=== PATIENT | female | born 1995 | race Caucasian/White ===

== ENCOUNTER 2017-08-14 15:44 | Emergency (ER) | payer OTHER ==
[2017-08-14 17:28] VITALS: BP 104/52
[2017-08-14] MEDS ORDERED: Ketorolac INJ* 60 MG/2 ML VIAL IM ONE (17:46)
[2017-08-14] MEDS ORDERED: Acetaminophen TAB* 325 MG PO ONE (18:30)
--- NOTE | 2017-08-14 18:39 | UC ---
Barron Phan Alfonso, scribed for True Inman MD on 08/14/17 at 1743 . UC General HPI - HPI Summary HPI Summary: This patient is a 21 year old F presenting to [facility] with a chief complaint of constant right jaw pain and popping since yesterday. The patient rates the aching pain 8/10 in severity. Symptoms aggravated by yawning and eating. Symptoms alleviated by nothing. Patient denies difficulty swallowing, ear pain and sore throat. - History of Current Complaint Chief Complaint: UCGeneralIllness Stated Complaint: JAW PAIN Time Seen by Provider: 08/14/17 17:39 Hx Obtained From: Patient Onset/Duration: Sudden Onset, Lasting Days - yesterday, Still Present Timing: Constant Current Severity: Moderate Pain Intensity: 8 - /10 Aggravating: yawning and eating Alleviating: nothing. Associated Signs & Symptoms: Positive: Other - Patient denies difficulty swallowing, ear pain and sore throat. - Allergy/Home Medications Allergies/Adverse Reactions: Allergies Allergy/AdvReac Type Severity Reaction Status Date / Time No Known Allergies Allergy Verified 08/14/17 17:17 Home Medications: Home Medications Acetaminophen [Acetaminophen Extra Stren] 1,000 mg PO ONCE 08/14/17 [History Confirmed 08/14/17] Multivit-Min W/Fe-FA [ and Iron] 1 tab PO DAILY 08/14/17 [ History Confirmed 08/14/17] PMH/Surg Hx/FS Hx/Imm Hx Previously Healthy: Yes - Surgical History Surgical History: None - Family History Known Family History: Positive: Other - Throid disease. Muscular distrophy. - Social History Alcohol Use: None Substance Use Type: None Smoking Status (MU): Never Smoked Tobacco Review of Systems Constitutional: Other - Negative fever ENT: Other - right jaw pain and popping Negative sore throat, difficulty swallowing, ear pain All Other Systems Reviewed And Are Negative: Yes Physical Exam Triage Information Reviewed: Yes Vital Signs: Initial Vital Signs Temp 98.5 F 08/14/17 17:19 Pulse 75 08/14/17 17:19 Resp 18 08/14/17 17:19 BP 104/52 08/14/17 17:19 Pulse Ox 100 08/14/17 17:19 Vital Signs Reviewed: Yes - Additional Comments VITAL SIGNS: Reviewed. GENERAL: Patient is a well-developed and nourished female who is lying comfortable in the stretcher. Patient is not in any acute respiratory distress. HEAD AND FACE: Normocephalic EYES: PERRLA, EOMI x 2. EARS: Hearing grossly intact. MOUTH: Oropharynx within normal limits. TMJ tenderness. NECK: Supple, trachea is midline, no adenopathy, no JVD, no carotid bruit. CHEST: Symmetric, no tenderness at palpation LUNGS: Clear to auscultation bilaterally. No wheezing or crackles. CVS: Regular rate and rhythm, S1 and S2 present, no murmurs or gallops appreciated. ABDOMEN: Soft, non-tender. Bowel sounds are normal. No abdominal abnormal pulsations. EXTREMITIES: Full ROM in all major joints, no edema, no cyanosis or clubbing. NEURO: Alert and oriented x 3. No acute neurological deficits. Speech is normal and follows commands. SKIN: Dry and warm Course/Dx - Course Course Of Treatment: This patient is a 21 year old F presenting to [facility] with a chief complaint of constant right jaw pain and popping since yesterday. The patient rates the aching pain 8/10 in severity. Symptoms aggravated by yawning and eating. Symptoms alleviated by nothing. Patient denies difficulty swallowing , ear pain and sore throat. In the [facility] course the patient was given Tylenol. Patient will be discharged with follow up from PCP. The patient is agreeable with this plan. The patient is hemodynamically stable, alert and oriented x3. - Differential Dx - Multi-Symptom Differential Diagnoses: Other - Pharyngitis, OM, OE Provider Diagnoses: TMJ tenderness. Discharge - Discharge Plan Condition: Stable Disposition: HOME Patient Education Materials: Temporomandibular Disorder (ED) Referrals: Adrien SALAMANCA,[address] [Primary Care Provider] - 3 Days Additional Instructions: RETURN TO THE EMERGENCY DEPARTMENT OR CONVIENT CARE FOR CHANGING OR WORSENING SYMPTOMS. The documentation as recorded by the Barron marie Alfonso accurately reflects the service I personally performed and the decisions made by , True Inman MD.
== END 2017-08-14 18:42 | disposition home or self-care (01) ==
LOC: UCEAST 15:44
DX: M26.69 Other specified disorders of temporomandibular joint (principal)
CPT/HCPCS: 99212; A9270-GY; G0463; J1885

== ENCOUNTER 2018-02-23 03:07 | Inpatient (IN) | payer OTHER ==
[2018-02-23 04:56] LABS: Hematocrit 36 % (35-47); Hemoglobin 12.2 g/dl (12.0-16.0); Mean Corpuscular HGB Conc 33 g/dl (31-36); Mean Corpuscular Hemoglobin 28 pg (27-31); Mean Corpuscular Volume 85 fL (80-97); Mean Platelet Volume 8.3 um3 (7.4-10.4); Platelet Count 277 10^3/ul (150-450); Red Blood Count 4.27 10^6/ul (4.00-5.40); Red Cell Distribution Width 14 % (10.5-15); White Blood Count 17.5 10^3/ul (3.5-10.8)
[2018-02-23 05:00] LABS: Urine Appearance Clear; Urine Blood Negative (Negative); Urine Color Straw; Urine Ketones Negative (Negative); Urine Protein Negative (Negative); Urine Specific Gravity 1.004 (1.010-1.030); Urine Urobilinogen Negative (Negative)
--- NOTE | 2018-02-23 06:00 | HP ---
General Information - General Information Maternal Age: 22 Grav: 1 Para: 0 SAB: 0 IEA: 0 Estimated Due Date: 02/19/18 Determined By: Early Ultrasound - 11 week Maternal Blood Type and Rh: A Positive - Results this Serology/RPR Result: Non-Reactive Rubella Result: Immune HBsAg Result: Negative HIV Result: Negative GBS Culture Result: Negative Past Medical History Delivery History: See Records Delivery History Comment: primip Pertinent Past Medical History: See Records Past Medical History Comment: Hx asthma. Uses rescue inhaler PRN. Hx depression/anxiety. No current medications Pertinent Past Surgical History: None Pertinent Family History: See Records Family History Comment: Father: Muscular dystrophy Mother: Cervical Cancer, Celiac disease Brother: Lyme disease, Celiac disease Sister: Autism MGM: Celiac disease - Antepartal Records Antepartal Records: Reviewed, Uncomplicated Review of Systems Constitutional: Uncomfortable - with UCs CV Complaint: No Respiratory: Shortness of Breath: No Gastrointestinal: No Nausea/Vomiting, Normal Bowel Movement Genitourinary: No Dysuria, No Bleeding, No Leaking Fluid Musculoskeletal: Contractions Neurological: No Headache, No Visual Changes Movement: Normal Exam Allergies/Adverse Reactions: Allergies No Known Allergies Allergy (Verified 08/14/17 17:17) BP: 143/93, 143/88, 142/92, 142/78 HR: 84 RR: 18 T: 97.7 Lab Values - Entire Visit: Laboratory Tests 02/23/18 02/23/18 02/23/18 04:13 04:13 04:15 WBC 17.5 H RBC 4.27 Hgb 12.2 Hct 36 MCV 85 MCH 28 MCHC 33 RDW 14 Plt Count 277 MPV 8.3 Urine Color Straw Urine Appearance Clear Urine pH 6.0 Ur Specific [place] 1.004 L Urine Protein Negative Urine Ketones Negative Urine Blood Negative Urine Nitrate Negative Urine Bilirubin Negative Urine Urobilinogen Negative Ur Leukocyte Esterase Trace A Urine WBC (Auto) Trace(0-5/hpf) Urine RBC (Auto) Trace(0-2/hpf) Ur Squamous Epith Cells Present A Urine Bacteria Absent Urine Glucose Negative Blood Type A Positive - Measurements Height: 5 ft 5 in Weight: 207 lb Weight in lbs: [id number] Body Mass Index (BMI): 34.4 Pre- Weight: 145 lb Weight Gained This : 62 lbs and 0 ozs - Exam Abdomen: No Upper Quadrant Pain Breast: Breast Exam Deferred CVA: No CVA Tenderness Extremities: No Edema Heart: Normal Rhythm/Heart Sounds HEENT: No Significant Findings Lungs: Clear Bilaterally Rectal: Rectal Exam Deferred Reflexes: DTR 2+ Thyroid: No Thyromegaly - Abdominal Exam Abdomen Exam: Non-Tender, Fundal Height Consistent with Dates - Ultrasound/Biophysical Profile Ultrasound Status: Not Done Targeted Exam Findings See L&D Outpatient Visit Provider Note for Findings: N/A Estimated Weight: 8lbs Cervical Exam: 7cm Effacement: 100% Presenting Part: Vertex Membrane Status: Bulging Sterile Speculum Exam: not done EFM Findings - External Monitor Findings Baseline Heart Rate: 130 External Monitor Findings: Accelerations Present, No Pattern of Variable or Late Decelerations, Variability Moderate, Baseline Stable External Monitor Findings Comment: No evidence of metabolic acidemia Contractions: Moderate, Strong, >90 Seconds Assessment/Plan - Reason for Visit Reason for Visit: IUP at 40-4/7 in labor. Elevated BP of unknown significance. Suspect gestational hypertension given no proteinuria, normal platelet count. Chemistry still pending - Obstetrical Risk Factors Obstetrical Risk Factors: Post-Dates, Gestational Hypertension - Plan Plan: Observe, Active Labor Plan Comment: Pt request epidural analgesia. Anesthesia paged for bedside consult. Anticipate - Date/Time of Admission Date of Admission: 02/23/18 Time of Admission: 05:05
[2018-02-23 06:03] LABS: EGFR Non-African American 133.9 (>60)
[2018-02-23] MEDS ORDERED: OBEPIDURAL* 250 ML EPIDURAL ONE (06:09)
[2018-02-23] MEDS ORDERED: Famotidine TAB* 20 MG PO PRN (06:28)
[2018-02-23] MEDS ORDERED: Phenylephrine IV* 40 MCG/ML 10 ML SYRINGE IV PUSH PRN (06:28)
[2018-02-23] MEDS ORDERED: Sodium Citrate/Citric Acid* 15 ML UDC PO PRN (06:28)
--- NOTE | 2018-02-23 07:16 | PN ---
Progress Note - Progress Note Date of Service: 02/23/18 Note: S: Pt comfortable s/p CEI placement. Reports increased pressure with UCs O: BPs improved after CEI. 122/52 HR 72 FHT: 140bpm. Moderate variability. +Accels. Rare decels. UCs q 2-3 min VE: 9cm/100%/vtx 0 station. BBOW A: IUP at 40-4/7 in active labor Category II FHT moderate variability maintained. Bears close monitoring P: Report to Kami Lomas who will assume care at 0800. Anticipate trial of pushing soon.
[2018-02-23] MEDS ORDERED: Oxytocin in LR* 20 UNITS/1,000 ML BAG IVPB ONE (08:38)
[2018-02-23] MEDS ORDERED: fentaNYL* 50 MCG/ML 2 ML VIAL (100 MCG VIAL) ONE (08:45)
[2018-02-23] MEDS ORDERED: Glycerin ADULT SUPP PR PRN (09:14)
[2018-02-23] MEDS ORDERED: Witch Hazel PAD* JAR TOPICAL PRN (09:14)
[2018-02-23] MEDS ORDERED: Dibucaine 1% 28.35 GM TUBE PR PRN (09:14)
[2018-02-23] MEDS ORDERED: Acetaminophen TAB* 325 MG PO PRN (09:14)
[2018-02-23] MEDS ORDERED: Oxytocin in LR* 20 UNITS/1,000 ML BAG IVPB SCH (10:00)
[2018-02-23] MEDS ORDERED: Lidocaine 1%* 5 ML VIAL ONE (12:13)
[2018-02-23] MEDS: Docusate CAP* 100 MG PO SCH ×2 (12:50→19:56)
[2018-02-23] MEDS: Ibuprofen TAB* 600 MG PO PRN ×2 (12:50→19:56)
--- NOTE | 2018-02-23 17:12 | PROCNOTE ---
[facility] OB: Delivery Note - Delivery A Date of : 02/23/18 Time of : 08:29 [place] Sex: Male Weight at : 3.066 kg Score 1 Minute: 9 Score 5 Minutes: 9 Gestational Age in Weeks and Days at Delivery: 40 Weeks and 4 Days Delivery Method: Spontaneous Vaginal Labor: Spontaneous Did Patient attempt ?: N/A, No Previous Amniotic Fluid: Clear Estimated Blood Loss: 350 Anesthesia/Analgesia: CEI for Labor Delivered By: Kami José - Nursery Level of Nursery: Regular/Bedside - Perineum Perineal Injury Comment: right labial laceration Perineal Repair: By Delivering Practioner - Events Delivery Events of Note: Pitocin Only After Delivery - Additional Delivery Notes Additional Delivery Notes: Pt admitted to L&D at 0500 in active labor. Labor progressed and pt requested and received epidural for pain relief. Pt progressed to full dilation and began pushing w/ Meaghan Berkowitz CNM, care transferred to this medical writer at 0800. Pt pushed with good effort, delivering a viable male infant after 39 minutes of pushing. Infant passed to maternal abdomen, short cord noted. After pulsation ceased, cord clamped, cut by 's father. Placenta delivered soon after, intact, Evy side, with gentle traction. Fundus firm to massage, IV Pitocin started after delivery of placenta. Exam revealed right labial laceration, repaired in the usual fashion with absorbable suture with good hemostasis and tissue reapproximation. Mother and baby stable at this time, .
[2018-02-24 07:05] LABS: ABS Basophils 0 10^3/ul (0-0.2); ABS Eosinophils 0.1 10^3/ul (0-0.6); ABS Lymphocytes 2.5 10^3/ul (1.0-4.8); ABS Monocytes 0.8 10^3/ul (0-0.8); ABS Neutrophils 10.4 10^3/ul (1.5-7.7); ABS Nucleated RBC 0 10^3/ul; Eosinophil % 0.8 % (0-6); Hematocrit 32 % (35-47); Hemoglobin 10.9 g/dl (12.0-16.0); Lymphocyte % 18.3 % (25-47); Mean Corpuscular HGB Conc 34 g/dl (31-36); Mean Corpuscular Hemoglobin 29 pg (27-31); Mean Corpuscular Volume 86 fL (80-97); Mean Platelet Volume 7.7 um3 (7.4-10.4); Nucleated Red Blood Cells % 0; Platelet Count 235 10^3/ul (150-450); Red Blood Count 3.76 10^6/ul (4.00-5.40); Red Cell Distribution Width 15 % (10.5-15); White Blood Count 13.8 10^3/ul (3.5-10.8)
[2018-02-24] MEDS: Docusate CAP* 100 MG PO SCH ×3 (08:38→20:31)
[2018-02-24] MEDS: OBEPIDURAL* 250 ML EPIDURAL SCH (09:19)
[2018-02-24] MEDS: Ferrous Gluconate TAB* 324 MG TAB PO SCH ×2 (09:19→22:39)
[2018-02-24] MEDS: Ibuprofen TAB* 600 MG PO PRN (20:31)
--- NOTE | 2018-02-24 21:00 | PTEDU ---
Patient Name: CHAVA RAZA CHAVA RAZA selected video: Follow Me Mum: [employer] Successful to view on 2017 at 8:59:21 PM from [id number]
[2018-02-25] MEDS: Ibuprofen TAB* 600 MG PO PRN (03:34)
[2018-02-25 07:44] VITALS: BP 114/66
[2018-02-25] MEDS: Docusate CAP* 100 MG PO SCH (09:03)
== END 2018-02-25 11:25 | disposition home or self-care (01) | DRG 560 ==
LOC: MCHOBOUT 03:07 → MCHOB 05:05
PROVIDERS: ADMIT Midwife; ATTEND Midwife
PROC: 10907ZC Drainage of Amniotic Fluid, Therapeutic from Products of Conception, Via Natural or Artificial Opening (ICD-10-PCS; principal; 2018-02-23)
PROC: 4A1HXCZ Monitoring of Products of Conception, Cardiac Rate, External Approach (ICD-10-PCS; 2018-02-23)
PROC: 10E0XZZ Delivery of Products of Conception, External Approach (ICD-10-PCS; 2018-02-23)
PROC: 0UQMXZZ Repair Vulva, External Approach (ICD-10-PCS; 2018-02-23)
DX: O13.4 Gestational [pregnancy-induced] hypertension without significant proteinuria, complicating childbirth (principal); O69.3XX0 Labor and delivery complicated by short cord, not applicable or unspecified; O48.0 Post-term pregnancy; O99.52 Diseases of the respiratory system complicating childbirth; J45.909 Unspecified asthma, uncomplicated; Z3A.40 40 weeks gestation of pregnancy; Z37.0 Single live birth; O70.0 First degree perineal laceration during delivery; O76 Abnormality in fetal heart rate and rhythm complicating labor and delivery
CPT/HCPCS: 36415; 80053; 81003; 81015; 84550; 85025; 85027; 86850; 86900; 86901; 87086; A9270-GY; J3010

== ENCOUNTER → 2018-07-09 15:18 | Emergency (ER) | payer OTHER ==
[~2018-07-09 15:18] MED LIST: Acetaminophen TAB* 325 MG PO ONE
--- NOTE | 2018-07-09 15:35 | ED ---
Psychiatric Complaint - HPI Summary HPI Summary: This patient is a 22 year old F presenting to [facility] with a chief complaint of depression and anxiety that has been getting worse for the past two months. She states she has had suicidal thoughts but no plan. She has stopped taking medications but has a hx of depression and anxiety. She states she ran out of her medication during her move. She states she has not slept well but does not sleep during the day. Pt states she cries often. - History Of Current Complaint Chief Complaint: EDMentalHealth Time Seen by Provider: 07/09/18 15:31 Hx Obtained From: Patient Onset/Duration: Still Present, Worse Since Timing: Constant Severity Initially: Moderate Severity Currently: Moderate Character: Depressed, Anxious Related History: Positive For: Prior Psychiatric Issues Has Suicidal: Reports: Thoughts. Denies: With A Plan - Allergies/Home Medications Allergies/Adverse Reactions: Allergies Allergy/AdvReac Type Severity Reaction Status Date / Time No Known Allergies Allergy Verified 07/09/18 15:23 PMH/Surg Hx/FS Hx/Imm Hx Endocrine/Hematology History: Denies: Hx Systemic Lupus Erythematosus, Hx Sickle Cell Disease, Hx Coagulopothy Respiratory History: Reports: Hx Asthma Sensory History: Reports: Hx Contacts or Glasses Opthamlomology History: Reports: Hx Contacts or Glasses Psychiatric History: Reports: Hx Anxiety, Hx Depression - Surgical History Surgery Procedure, Year, and Place: NONE Infectious Disease History: No Infectious Disease History: Denies: Traveled Outside the [place] in Last 30 Days - Family History Known Family History: Positive: Other - Throid disease. Muscular distrophy. Negative: Respiratory Disease - Social History Alcohol Use: None Substance Use Type: Reports: None Smoking Status (MU): Never Smoked Tobacco Review of Systems Negative: Fever Positive: Anxious, Depressed All Other Systems Reviewed And Are Negative: Yes Physical Exam - Summary Physical Exam Summary: VITAL SIGNS: Reviewed. GENERAL: Patient is a well-developed and nourished female who is lying comfortable in the stretcher. Patient is not in any acute respiratory distress. HEAD AND FACE: No signs of trauma. No ecchymosis, hematomas or skull depressions. No sinus tenderness. EYES: PERRLA, EOMI x 2, No injected conjunctiva, no nystagmus. EARS: Hearing grossly intact. Ear canals and tympanic membranes are within normal limits. MOUTH: Oropharynx within normal limits. NECK: Supple, trachea is midline, no adenopathy, no JVD, no carotid bruit, no c- spine tenderness, neck with full ROM. CHEST: Symmetric, no tenderness at palpation LUNGS: Clear to auscultation bilaterally. No wheezing or crackles. CVS: Regular rate and rhythm, S1 and S2 present, no murmurs or gallops appreciated. ABDOMEN: Soft, non-tender. No signs of distention. No rebound no guarding, and no masses palpated. Bowel sounds are normal. EXTREMITIES: FROM in all major joints, no edema, no cyanosis or clubbing. NEURO: Alert and oriented x 3. No acute neurological deficits. Speech is normal and follows commands. SKIN: two very superficial abrasion on the right hip PSYCH: Depressed, quiet. No homicidal thoughts or plan. No signs of psychosis or pressure speech. No tangential speech. Triage Information Reviewed: Yes Vital Signs On Initial Exam: Initial Vitals Temp Pulse Resp BP Pulse Ox 98 F 85 16 141/84 100 07/09/18 15:19 07/09/18 15:19 07/09/18 15:19 07/09/18 15:19 07/09/18 15:19 Vital Signs Reviewed: Yes Diagnostics - Vital Signs Vital Signs Temp Pulse Resp BP Pulse Ox 07/09/18 15:19 98 F 85 16 141/84 100 - Laboratory Result Diagrams: 07/09/18 15:50 07/09/18 15:50 Lab Statement: Any lab studies that have been ordered have been reviewed, and results considered in the medical decision making process. Course/Dx - Course Assessment/Plan: This patient is a 22 year old F presenting to [facility] with a chief complaint of depression and anxiety that has been getting worse for the past two months. She states she has had suicidal thoughts but no plan. She has stopped taking medications but has a hx of depression and anxiety. She states she ran out of her medication during her move. She states she has not slept well but does not sleep during the day. Pt states she cries often. Blood work w /o a significant abnormality. She is medically cleared. She is awaiting for a MHE. Patient is hemodynamically stable and A+O x 3. Patient will be signed out to Dr. Bey at shift change. - Differential Dx/Clinical Impression Differential Diagnosis/HQI/PQRI: Positive: Anxiety, Depression, Suicidal Ideation Discharge - Sign-Out/Discharge Documenting (check all that apply): Sign-Out Patient Signing out patient TO: Millicent Bey - Discharge Plan Condition: Stable Referrals: Adrien SALAMANCA,[address] [Primary Care Provider] - - Billing Disposition and Condition Condition: STABLE - Attestation Statements Document Initiated by Scribe: Yes Scribe Documentation Reviewed: Yes
[2018-07-09 16:18] LABS: ABS Basophils 0 10^3/ul (0-0.2); ABS Eosinophils 0.1 10^3/ul (0-0.6); ABS Lymphocytes 2.3 10^3/ul (1.0-4.8); ABS Monocytes 0.4 10^3/ul (0-0.8); ABS Neutrophils 4.8 10^3/ul (1.5-7.7); ABS Nucleated RBC 0 10^3/ul; EGFR Non-African American 93.2 (>60); Eosinophil % 1.7 % (0-6); Hematocrit 41 % (35-47); Hemoglobin 13.7 g/dl (12.0-16.0); Lymphocyte % 29.8 % (25-47); Mean Corpuscular HGB Conc 33 g/dl (31-36); Mean Corpuscular Hemoglobin 27 pg (27-31); Mean Corpuscular Volume 81 fL (80-97); Mean Platelet Volume 7.9 fL (7.4-10.4); Nucleated Red Blood Cells % 0.1; Platelet Count 288 10^3/ul (150-450); Red Blood Count 5.13 10^6/ul (4.00-5.40); Red Cell Distribution Width 16 % (10.5-15); White Blood Count 7.8 10^3/ul (3.5-10.8)
[2018-07-09 16:19] LABS: Urine Appearance Clear; Urine Blood Negative (Negative); Urine Color Yellow; Urine Ketones 1+ (Negative); Urine Protein Negative (Negative); Urine Specific Gravity 1.017 (1.010-1.030); Urine Urobilinogen Negative (Negative)
--- NOTE | 2018-07-09 21:55 | ED ---
Progress - Progress Note Progress Note: This pt was signed out by Dr. Inman, pending disposition, awaiting MHE. Pt had a mental health evaluation and her case was reviewed by Dr. Lutz, psychiatrist. Dr. Lutz cleared the pt for discharge. Pt will be discharged home with diagnosis of anxiety and outpatient follow up from [facility] on 07/13/18. She was give a prescription for Hydroxyzine 50 mg. Course/Dx - Diagnoses Provider Diagnoses: Anxiety, Agitation Discharge - Sign-Out/Discharge Documenting (check all that apply): Patient Departure - Discharge home, Receiving Sign-Out Receiving patient FROM: True Inman - Discharge Plan Condition: Stable Disposition: HOME Prescriptions: hydrOXYzine HCL TAB* [Atarax TAB 50 MG *] 50 mg PO Q6H PRN #30 tab PRN Reason: Agitation/Anxiety Referrals: Adrien SALAMANCA,[address] [Primary Care Provider] - - Attestation Statements Document Initiated by Scribe: Yes Documenting Scribe: Korin James Provider For Whom Scribe is Documenting (Include Credential): Millicent Bey MD Scribe Attestation: Korin Phan, scribed for Millicent Bey MD on 07/09/18 at 2155.
[2018-07-09 22:00] VITALS: BP 102/71
== END | disposition home or self-care (01) ==
LOC: ED 15:18
DX: F32.9 Major depressive disorder, single episode, unspecified (principal); F41.9 Anxiety disorder, unspecified; R45.1 Restlessness and agitation
CPT/HCPCS: 36415; 80053; 80307; 80320; 80329; 81003; 84443; 85025; 99285; A9270-GY; G0480

== ENCOUNTER 2020-03-05 10:47 | Observation (INO) ==
[2020-03-05] MEDS ORDERED: Morphine 2 MG/ML SYRINGE IV PRN (12:50)
[2020-03-05 13:21] LABS: ABS Eosinophils 0.1 10^3/ul (0-0.6); ABS Lymphocytes 1.6 10^3/ul (1.0-4.8); ABS Monocytes 1.1 10^3/ul (0-0.8); ABS Neutrophils 7.4 10^3/ul (1.5-7.7); Eosinophil % 0.7 %; Hematocrit 34 % (35-47); Hemoglobin 11.5 g/dL (12.0-16.0); Lymphocyte % 15.8 %; Mean Corpuscular HGB Conc 34 g/dL (31-36); Mean Corpuscular Hemoglobin 28 pg (27-31); Mean Corpuscular Volume 84 fL (80-97); Mean Platelet Volume 7.2 fL (7.4-10.4); Platelet Count 288 10^3/uL (150-450); Red Blood Count 4.04 10^6 /uL (3.70-4.87); Red Cell Distribution Width 15 % (10-15); White Blood Count 10.3 10^3/uL (3.5-10.8)
[2020-03-05] MEDS ORDERED: Piperacillin/Tazobac ADVAN 3.375 GM in NS 0.9% 100 ml BAG 100 ML IVPB ONE (13:26)
[2020-03-05 13:36] LABS: Albumin 3.2 g/dL (3.2-5.2); Albumin/Globulin Ratio 1.3 (1-3); BUN/Creatinine Ratio 15.5 (8-20); C Reactive Protein 110.69 mg/L (<8.01); EGFR African American 155.9 (>60); EGFR Non-African American 128.8 (>60); Globulin 2.4 g/dL (2-4); Potassium 3.7 mmol/L (3.5-5.0); Total Bilirubin 0.8 mg/dL (0.2-1.0); Total Protein 5.6 g/dL (6.4-8.9)
[2020-03-05] MEDS ORDERED: Zosyn per Pharmacy NOTE FOLLOW UP SCH (14:00)
[2020-03-05] MEDS: Ondansetron 4 mg VIAL 2 MG/ML 2 ml VIAL IV PRN (15:05)
[2020-03-05] MEDS: NS 0.9% 1000 ml BAG 1,000 ML IV SCH (15:11)
[2020-03-05] MEDS: DOXYcycline 100 MG in NS 0.9% 250 ml 250 ML IVPB SCH (16:31)
[2020-03-05] MEDS ORDERED: Iohexol 350 (CONTRAST) 500 ML MDV IV ONE (19:03)
[2020-03-05] MEDS ORDERED: NS 0.9% 100 ml BAG 100 ML ONE (20:43)
[2020-03-05] MEDS: ZOSYN 3.375 GM Q8H per EXTENDED INFUSION IV SCH (20:45)
[2020-03-06] MEDS: NS 0.9% 1000 ml BAG 1,000 ML IV SCH ×2 (00:33→13:41)
[2020-03-06] MEDS: DOXYcycline 100 MG in NS 0.9% 250 ml 250 ML IVPB SCH ×2 (02:00→15:27)
[2020-03-06] MEDS: ZOSYN 3.375 GM Q8H per EXTENDED INFUSION IV SCH ×2 (04:04→11:49)
[2020-03-06 13:25] LABS: ABS Eosinophils 0.1 10^3/ul (0-0.6); ABS Lymphocytes 2.3 10^3/ul (1.0-4.8); ABS Monocytes 0.6 10^3/ul (0-0.8); ABS Neutrophils 5.3 10^3/ul (1.5-7.7); Eosinophil % 1.2 %; Hematocrit 37 % (35-47); Hemoglobin 12.2 g/dL (12.0-16.0); Lymphocyte % 27.4 %; Mean Corpuscular HGB Conc 33 g/dL (31-36); Mean Corpuscular Hemoglobin 29 pg (27-31); Mean Corpuscular Volume 86 fL (80-97); Mean Platelet Volume 7.4 fL (7.4-10.4); Platelet Count 280 10^3/uL (150-450); Red Blood Count 4.28 10^6 /uL (3.70-4.87); Red Cell Distribution Width 15 % (10-15); White Blood Count 8.3 10^3/uL (3.5-10.8)
[2020-03-06 13:34] LABS: ALT 10 U/L (7-52); AST 14 U/L (13-39); Albumin 3.3 g/dL (3.2-5.2); Albumin/Globulin Ratio 1.1 (1-3); Alkaline Phosphatase 52 U/L (34-104); Anion Gap 9 mmol/L (2-11); BUN/Creatinine Ratio 11.9 (8-20); Blood Urea Nitrogen 8 mg/dL (6-24); C Reactive Protein 168.07 mg/L (<8.01); CO2 Carbon Dioxide 20 mmol/L (22-32); Calcium 8.3 mg/dL (8.6-10.3); Chloride 110 mmol/L (101-111); EGFR Non-African American 109.1 (>60); Globulin 2.9 g/dL (2-4); Glucose 65 mg/dL (70-100); Potassium 3.7 mmol/L (3.5-5.0); Sodium 139 mmol/L (135-145); Total Protein 6.2 g/dL (6.4-8.9)
[2020-03-06 13:40] LABS: HCG Pregnancy < 0.60 mIU/mL
[2020-03-06 14:26] LABS: Chlamydia trachomatis NAA Positive (Negative); Neisseria gonorrhoeae (GC) NAA Negative (Negative)
[2020-03-06] MEDS ORDERED: NS 0.9% 1000 ml BAG 1,000 ML IV SCH (17:26)
[2020-03-06] MEDS: Ondansetron 4 mg VIAL 2 MG/ML 2 ml VIAL IV PRN (18:44)
[2020-03-06] MEDS: ceFOXitin 2 GM IVPREMIX 2 GM/50 ML BAG IVPB SCH (19:30)
[2020-03-06] MEDS ORDERED: Prochlorperazine 5 mg/ml 2 ml VIAL (10 mg) IV PRN (23:06)
[2020-03-07] MEDS: ceFOXitin 2 GM IVPREMIX 2 GM/50 ML BAG IVPB SCH ×5 (00:25→23:38)
[2020-03-07] MEDS: Ondansetron 4 mg VIAL 2 MG/ML 2 ml VIAL IV PRN ×2 (08:50→20:50)
[2020-03-07 10:33] LABS: CO2 Carbon Dioxide 19 mmol/L (22-32); Calcium 8.5 mg/dL (8.6-10.3); Chloride 108 mmol/L (101-111); Sodium 137 mmol/L (135-145)
[2020-03-07 10:39] LABS: Blood Urea Nitrogen 6 mg/dL (6-24); C Reactive Protein 124.33 mg/L (<8.01); EGFR African American 115.9 (>60); EGFR Non-African American 95.8 (>60); Glucose 77 mg/dL (70-100)
[2020-03-07 10:41] LABS: Anion Gap 10 mmol/L (2-11)
[2020-03-07 10:52] LABS: HIV 4th Generation Nonreactive (Nonreactive)
[2020-03-08] MEDS: ceFOXitin 2 GM IVPREMIX 2 GM/50 ML BAG IVPB SCH ×2 (06:25→12:21)
[2020-03-08 06:40] LABS: Calcium 8.4 mg/dL (8.6-10.3)
[2020-03-08 06:46] LABS: BUN/Creatinine Ratio 12.2 (8-20); EGFR African American 104.5 (>60); EGFR Non-African American 86.4 (>60)
[2020-03-08] MEDS: Ondansetron 4 mg VIAL 2 MG/ML 2 ml VIAL IV PRN (08:51)
[2020-03-08 11:57] VITALS: BP 114/54
== END 2020-03-08 14:12 | disposition home or self-care (01) | DRG 724 ==
LOC: MEDTELE 12:04 → INTOOBSV 12:04
PROVIDERS: ADMIT Internal Medicine; ATTEND Internal Medicine